=== PATIENT | female | born 1975 | race Caucasian/White ===

== ENCOUNTER 2016-07-09 18:54 | Emergency (ER) | payer OTHER, MEDICARE ==
[~2016-07-09] VITALS: Ht 170.2 cm; Wt 55.8 kg
--- NOTE | 2016-07-09 19:32 | ED GENERAL ADULT ---
History of Present Illness General Chief Complaint: General Adult Stated Complaint: PT IS DIZZY AND RENAL FAILURE Source: patient Exam Limitations: no limitations Vital Signs & Intake/Output Vital Signs & Intake/Output Vital Signs Date Time Temp Pulse Resp B/P Pulse O2 O2 Flow FiO2 Ox Delivery Rate 07/09 2214 98.0 75 18 95/52 98 Room Air 07/09 2109 97.7 69 16 95/55 100 Room Air 07/10 1999 Room Air 07/09 1857 98.8 79 18 109/68 96 Room Air Allergies Coded Allergies: lamotrigine (From LAMICTAL) (Severe, RASH 07/09/16) gluten (Intermediate, BLOATING 07/09/16) wheat (Intermediate, BLOATING 07/09/16) Reconcile Medications Alprazolam 0.25 MG TABLET 2 TAB PO 4 TIMES/DAY PRN ANXIETY (Reported) Chlorzoxazone (Lorzone) 750 MG TABLET 1 TAB PO BID BACK SPASMS/PAIN (Reported ) Cholecalciferol (Vitamin D3) 1,000 UNIT TABLET 1 TAB PO QAM SUPPLEMENT ( Reported) Cyanocobalamin (Vitamin B-12) (Vitamin B-12) 1,000 MCG TAB.SUBL 1 TAB SL QAM SUPPLEMENT (Reported) Cyclobenzaprine HCl (Amrix) 15 MG CAP.ER.24H 1 CAP PO QPM MUSCLE RELAXER ( Reported) Diazepam 10 MG TABLET 1 TAB PO QPM SLEEP (Reported) Dicyclomine HCl 10 MG CAPSULE 1 CAP PO Q6P PRN GI (Reported) Guar Gum (Nutrisource Fiber) 1 EACH PACKET 1 PACKET PO BID GI (Reported) Hydroxychlorquine (Plaquenil) 200 MG TABLET 1 TAB PO BID LUPUS (Reported) Lactobacillus Rhamnosus GG (Culturelle) 10 BILLION CELL CAPSULE 1 CAP PO QAM PROBIOTIC (Reported) Levothyroxine Sodium (Tirosint) 75 MCG CAPSULE 1 CAP PO DAILY THYROID ( Reported) Liothyronine Sodium 5 MCG TABLET 1 TAB PO DAILY THYROID (Reported) Loperamide HCl (Loperamide) 2 MG CAPSULE 1 CAP PO 4 TIMES/DAY PRN DIARRHEA ( Reported) Metronidazole 500 MG TABLET 1 TAB PO BID ANTIBIOTIC (Reported) Montelukast Sodium (Singulair) 10 MG TABLET 1 TAB PO 0700 ALLERGIES (Reported ) Olopatadine HCl (Patanase) 0.6 % SPRAY.PUMP 2 SPRAY NASB BID ALLERGIES ( Reported) Oxycodone HCl 5 MG TABLET 1 TAB PO Q4H PRN PAIN (Reported) Sumatriptan Succinate (Imitrex) 100 MG TABLET 1 TAB PO DAILY PRN MIGRAINES ( Reported) with fluids as early as possible after the onset of a migraine attack;may repeat after 2 hours if headache returns, not to exce Topiramate (Topamax) 50 MG TABLET 1 TAB PO BID MIGRAINES (Reported) Triage Note: PT TO TRIAGE WITH C/O DIZZINESS, BILAT FLANK PAIN 10/10, HEADACHES, MILD SOB, WEAKNESS, DIARRHEAx4 SINCE THIS MORNING. HX OF COLON REDUCTION 3 WEEKS AGO. ALSO PT HAD ?LOW BP AT HOME. BP 109/68 IN TRIAGE, PT AFEBRILE, DENIES N/V, DENIES CHEST PAIN. +ABDOMENAL SORENESS. Triage Nurses Notes Reviewed? yes : No Patient currently breastfeeds: No HPI: 40-year-old female arrived to triage to room 3 for evaluation of lightheadedness , dizziness and bilateral flank pain that started early this morning. 3 weeks ago patient had a total colectomy for motility issues. She reports that she has had severe constipation for years and was found that her large intestine was not moving well. It was decided upon to have surgery to correct this. Since her surgery she has been having decreased appetite, decreased by mouth intake and has had periods of where she felt she was dehydrated. She denies any abdominal pain but does have some nausea no vomiting and has had changes in her stools from diarrhea to green stool to small soft stool. She denies any known fevers. At this time she is complaining of bilateral flank pain moderate to severe. Achy/ pressure sensation. She denies any urinary symptoms. She denies any recent sexual activity because of her recent surgery 3 weeks ago. (JUSTYN ORTEGA APRN) Past History Travel History Traveled to [place] past 21 day No Medical History Any Pertinent Medical History? see below for history Gastrointestinal: constipation (SEVERE) Musculoskeletal: disk herniation Endocrine: hypothyroidism Other Medical Hx: LUPUS, RAYNAUDS Surgical History Surgical History: appendectomy, colon resection, spinal fusion Psychosocial History What is your primary language Mosotho Tobacco Use: Never used ETOH Use: denies use Illicit Drug Use: denies illicit drug use Family History Hx Contributory? No (JUSTYN ORTEGA APRN) Review of Systems Review of Systems Constitutional: Reports: malaise, weakness. EENTM: Denies: no symptoms. Respiratory: Denies: no symptoms. Cardiovascular: Denies: no symptoms. GI: Reports: see HPI, nausea, changes in stool. Genitourinary: Denies: no symptoms. Musculoskeletal: Reports: see HPI, back pain. Skin: Denies: no symptoms. Neurological/Psychological: Denies: no symptoms. Hematologic/Endocrine: Denies: no symptoms. Immunologic/Allergic: Denies: no symptoms. (JUSTYN ORTEGA APRN) Physical Exam Physical Exam General Appearance: well developed/nourished, alert, awake, mild distress Head: atraumatic, normal appearance Eyes: Bilateral: normal appearance, PERRL, EOMI. Neck: normal inspection, supple, full range of motion Respiratory: normal breath sounds, chest non-tender, no respiratory distress, quiet respiration, lungs clear Cardiovascular: regular rate/rhythm Peripheral Pulses: 2+ radial (R), 2+ radial (L) Gastrointestinal: normal bowel sounds, soft, non-tender, incision site to abdomen clean dry intact well healed Back: CVA tenderness (R), CVA tenderness (L) Extremities: normal inspection, normal capillary refill, normal range of motion, no edema Neurologic/Psych: no motor/sensory deficits, awake, alert, oriented x 3, normal gait, normal mood/affect Skin: intact, normal color, warm/dry Core Measures ACS in differential dx? No CVA/TIA Diagnosis: No Severe Sepsis Present: No Septic Shock Present: No (JUSTYN ORTEGA APRN) Progress Differential Diagnoses I considered the following diagnoses in my evaluation of the patient: Electrolyte imbalance, UTI, pyelonephritis dehydration Plan of Care: Orders Procedure Date/time Status Add-on Test (ER Only) 07/09 2099 Active HUMAN BETA HCG SCREEN 07/10 1999 Complete CULTURE,URINE 07/10 1935 Active URINALYSIS 07/10 1935 Complete LIPASE 07/10 1935 Complete COMPREHENSIVE METABOLIC PANEL 07/10 1935 Complete CBC WITHOUT DIFFERENTIAL 07/10 1935 Complete AMYLASE 07/10 1935 Complete Laboratory Tests 07/09/16 2030: Urine Color YEL, Urine Clarity CLEAR, Urine pH 7.0, Ur Specific [place]cox 1.010, Urine Protein NEG, Urine Ketones NEG, Urine Nitrite NEG, Urine Bilirubin NEG, Urine Urobilinogen 0.2, Ur Leukocyte Esterase NEG, Ur Microscopic EXAM NOT REQUIRED, Urine Hemoglobin NEG, Urine Glucose NEG 07/09/161999: Anion Gap 8, Estimated GFR > 60, BUN/Creatinine Ratio 14.3, Glucose 99, Calcium 9.3, Total Bilirubin 0.2, AST 17, ALT 31, Alkaline Phosphatase 48, Total Protein 6.5, Albumin 3.8, Globulin 2.7, Albumin/Globulin Ratio 1.4, Amylase 70, Lipase 177, Total Beta HCG NEGATIVE, CBC w Diff NO MAN DIFF REQ, RBC 3.62 L, MCV 91.7, MCH 31.1 H, RDW 12.6, MPV 8.2, Gran % 63.9, Lymphocytes % 24.9, Monocytes % 7.7 , Eosinophils % 3.0, Basophils % 0.5, Absolute Granulocytes 2.7, Absolute Lymphocytes 1.1 L, Absolute Monocytes 0.3, Absolute Eosinophils 0.1, Absolute Basophils 0, PUBS MCHC 34.0 Microbiology 07/09 2029 URINE ROUT: Urine Culture - RECD 2129: Sign out received. CT scan pending. 07/09/2016 10:16:36 PM: Results of labs and CT scan discussed with patient. A printout of results were provided with the patient so that she may follow-up with her surgeon and her doctors. Patient nontoxic appearing, tolerating oral intake. Patient reports that her baseline blood pressures approximately 95/50. Patient's blood pressures in the emergency department consistent with patient's baseline. Appears stable for discharge with outpatient follow-up. (ANG ARORA) Initial ED EKG: none Hand-Off Endorsed To: ANG ARORA Endorsed Time: 2122 Pending: CT Comments: 8:34 PM patient states no relief with Toradol 30 mg IV. We will give her morphine 2 mg IV along with a liter of fluids that she is hardly getting. Labs are all within normal limits. Awaiting for UA to come back. 8:57 PM explained to patient that UA is normal and that after her liter of fluids with the morphine if the pain is constant she will be able to be discharged home. She is very concerned about what could be causing her back pain. She does have a history of lumbar surgery back in 2008 in his currently in pain management for chronic back pain. On oxycodone every 4 hours. We will order a CAT scan of abdomen and pelvis and if negative she will be able to be discharged home. (SHANNON MIRANDA,JUSTYN) Diagnostic Imaging: Viewed by Me: CT Scan. Discussed w/RAD: CT Scan. Radiology Impression: PATIENT: JESSI BAKER PRESENT AGE: 40 PATIENT ACCOUNT NO: [id number] : 73 LOCATION: [facility] ORDERING PHYSICIAN: JUSTYN ORTEGA APRN SERVICE DATE: 07/09/16 EXAM TYPE: CAT - CT ABD & PELVIS W IV CONTRAST EXAMINATION: CT ABDOMEN AND PELVIS WITH CONTRAST CLINICAL INFORMATION: Back pain. COMPARISON: None. TECHNIQUE: Multidetector volumetric imaging was performed of the abdomen and pelvis before and after the IV administration of 94 mL of Optiray 320 intravenous contrast. Sagittal and coronal reformatted images were obtained on the technologist's workstation. DLP: 252 mGy-cm FINDINGS: LUNG BASES: The visualized lung bases are unremarkable. LIVER, GALLBLADDER, AND BILIARY TREE: The liver is normal in size, shape, and attenuation. There is a tiny hypoattenuating lesion along the hepatic dome measuring 7 mm (series 602, image 46) (. This finding is entirely nonspecific but could reflect a small hepatic cyst or hemangioma. Additionally, there is a geographic region of hypoattenuation within the subcapsular region of the right hepatic lobe (series 2, image 24). This finding is also entirely nonspecific and incompletely characterized on this examination. No biliary ductal dilatation is identified. The gallbladder is unremarkable with no evidence of radiopaque gallstones, gallbladder wall thickening, or obvious pericholecystic inflammatory changes. PANCREAS: Unremarkable. SPLEEN: There is a cyst within the upper pole of the spleen measuring 2.6 x 3.0 cm. ADRENAL GLANDS: Unremarkable. KIDNEYS AND URETERS: The kidneys are normal in size and enhance homogeneously, without focal lesions. There is no appreciable nephrolithiasis or hydroureteronephrosis of either kidney or renal collecting system. No ureteral stones are identified. No CT findings indicative of acute pyelonephritis. BLADDER: Unremarkable. GASTROINTESTINAL TRACT: Evaluation of the gastrointestinal system is notable for postsurgical changes related to prior bowel surgery and anastomosis. The anastomotic site, which is visualized within the lower abdomen appears to be grossly patent. The imaged abdominal and pelvic bowel loops are normal in caliber, without findings indicative of small bowel obstruction or ileus. No organizing intra-abdominal or pelvic fluid collections are identified and there is no free intraperitoneal air. ABDOMINAL WALL: No significant hernia is appreciated. LYMPH NODES: No significant abdominal or pelvic adenopathy. VASCULAR: Prominent bilateral gonadal veins. Prominent bilateral parametrial vessels. These findings can be seen in the setting of underlying pelvic venous congestion. The abdominal vasculature is grossly patent. Abdominal aorta and its branching vessels are normal in caliber, without aneurysmal dilatation. PELVIC VISCERA: No adnexal masses are identified. OSSEOUS STRUCTURES: Mechanical hardware related to anterior fusion of the lumbosacral spine from L5 to S1. An intervertebral disc spacer is also identified at the L5- S1 intervertebral disc space. There is normal alignment at the lumbosacral junction. No acute lumbar vertebral compression deformity is identified. There is no cortical destruction or significant periosteal reaction. No perihardware lucencies are identified. IMPRESSION: 1. No acute findings within the abdomen or pelvis to explain patient symptomatology. Postsurgical changes related to prior bowel surgery. The anastomotic site appears to be grossly patent. The imaged abdominal and pelvic bowel loops are normal in caliber, without findings indicative of small bowel obstruction or ileus. 2. Mechanical hardware at the lumbosacral junction related to anterior lumbar fusion from L5 to S1. No perihardware lucencies are identified. There is no cortical destruction or significant periosteal reaction within this region to suggest underlying infection or inflammation. Lumbar spine alignment appears grossly maintained. 3. The bilateral kidneys appear unremarkable, without CT findings indicative of acute pyelonephritis. 4. Incidental geographic region of hypoattenuation within the subcapsular region of the right hepatic lobe. This finding is entirely nonspecific and incompletely characterized on this examination. Differential diagnostic considerations include but are not limited to focal fatty infiltration of the liver. An underlying mass within this region is also possible but is less favored. A nonemergent ultrasound may be obtained for preliminary characterization of this region. DICTATED BY: ROGERIO PHAM MD DATE/TIME DICTATED:07/09/162145 SALES AND MARKETING ADMINISTRATOR:KAILYN DATE/TIME TRANSCRIBED:07/09/162145 CONFIDENTIAL, DO NOT COPY WITHOUT APPROPRIATE AUTHORIZATION. <Electronically signed in Other Vendor System> SIGNED BY: ROGERIO PHAM MD 07/09/160 (ANG ARORA) Departure Departure Time of Disposition: 2123 Condition: Stable Referrals: ARBIA DO,CALI (PCP/Family) Departure Forms: Customer Survey General Discharge Information (JUSTYN ORTEGA APRN) Departure Time of Disposition: 2212 Disposition: HOME OR SELF CARE Clinical Impression Primary Impression: Flank pain Additional Instructions: Follow up with your surgeon and your doctor this upcoming week for further evaluation. Drink plenty of fluids. Return to the ER if fevers, unable to stay hydrated or worsening of symptoms. (AUGIE SOTOMAYOR,ANG) PA/DOOR FITTER Co-Sign Statement Statement: ED Attending supervision documentation- [] I saw and evaluated the patient. I have also reviewed all the pertinent lab results and diagnostic results. I agree with the findings and the plan of care as documented in the PA's/DOOR FITTER's documentation. x I have reviewed the ED Record and agree with the PA's/DOOR FITTER's documentation. [] Additions or exceptions (if any) to the PAs/DOOR FITTER's note and plan are summarized below: [] (BARB NAGY,MOON) Critical Care Note Critical Care Note Critical Care Time: non-applicable (JUSTYN ORTEGA APRN)
[2016-07-09] MEDS ORDERED: METRONIDAZOLE500 M1 PO (19:43)
[2016-07-09] MEDS ORDERED: NUTRISOURCE FI1 EACH PO (19:44)
[2016-07-09] MEDS ORDERED: OXYCODONE HCL5 M1 PO (19:45)
[2016-07-09] MEDS ORDERED: LOPERAMIDE2 M2 PO (19:45)
[2016-07-09] MEDS ORDERED: TIROSINT75 MC1 PO (19:46)
[2016-07-09] MEDS ORDERED: LIOTHYRONINE SO5 MC1 PO (19:46)
[2016-07-09] MEDS ORDERED: AMRIX15 M1 PO (19:46)
[2016-07-09] MEDS ORDERED: VITAMIN B-121000 MC2 SL (19:47)
[2016-07-09] MEDS ORDERED: DIAZEPAM10 M1 PO (19:48)
[2016-07-09] MEDS ORDERED: VITAMIN D31000 UNI2 PO (19:48)
[2016-07-09] MEDS ORDERED: PLAQUENIL200 M1 PO (19:49)
[2016-07-09] MEDS ORDERED: DICYCLOMINE HCL10 M1 PO (19:49)
[2016-07-09] MEDS ORDERED: CULTURELLE1 EACH PO (19:50)
[2016-07-09] MEDS ORDERED: IMITREX100 M1 PO (19:50)
[2016-07-09] MEDS ORDERED: SINGULAIR10 M1 PO (19:51)
[2016-07-09] MEDS ORDERED: LORZONE750 M1 PO (19:51)
[2016-07-09] MEDS ORDERED: TOPAMAX50 M1 PO (19:52)
[2016-07-09] MEDS ORDERED: PATANASE30.5 GM NASB (19:52)
[2016-07-09] MEDS ORDERED: ALPRAZOLAM0.25 M1 PO (19:53)
[2016-07-09 20:05] LABS: ABSOLUTE BASOPHIL COUNT 0 /CUMM (0.0-0.2); ABSOLUTE EOSINOPHIL COUNT 0.1 /CUMM (0.0-0.7); ABSOLUTE GRANULOCYTE CT 2.7 /CUMM (1.4-6.5); ABSOLUTE LYMPH COUNT 1.1 /CUMM (1.2-3.4); ABSOLUTE MONOCYTE COUNT 0.3 /CUMM (0.10-0.60); BASOPHIL % 0.5 % (0.0-2.0); GRANULOCYTE % 63.9 % (42.2-75.2); HEMATOCRIT 33.2 % (37-47); MEAN CORPUSCULAR HGB 31.1 PG (27.0-31.0); MEAN CORPUSCULAR VOLUME 91.7 FL (81.0-99.0); MEAN PLATELET VOLUME 8.2 FL (7.4-10.4); PLATELET COUNT 197 /CUMM (130-400); RBC DISTRIBUTION WIDTH 12.6 % (11.5-14.5); RED BLOOD CELL CT 3.62 /CUMM (4.20-5.40); WHITE BLOOD CELL COUNT 4.2 /CUMM (4.8-10.8)
--- NOTE | 2016-07-09 22:00 | CT SCAN REPORT ---
EXAMINATION: CT ABDOMEN AND PELVIS WITH CONTRAST CLINICAL INFORMATION: Back pain. COMPARISON: None. TECHNIQUE: Multidetector volumetric imaging was performed of the abdomen and pelvis before and after the IV administration of 94 mL of Optiray 320 intravenous contrast. Sagittal and coronal reformatted images were obtained on the technologist's workstation. DLP: 252 mGy-cm FINDINGS: LUNG BASES: The visualized lung bases are unremarkable. LIVER, GALLBLADDER, AND BILIARY TREE: The liver is normal in size, shape, and attenuation. There is a tiny hypoattenuating lesion along the hepatic dome measuring 7 mm (series 602, image 46) (. This finding is entirely nonspecific but could reflect a small hepatic cyst or hemangioma. Additionally, there is a geographic region of hypoattenuation within the subcapsular region of the right hepatic lobe (series 2, image 24). This finding is also entirely nonspecific and incompletely characterized on this examination. No biliary ductal dilatation is identified. The gallbladder is unremarkable with no evidence of radiopaque gallstones, gallbladder wall thickening, or obvious pericholecystic inflammatory changes. PANCREAS: Unremarkable. SPLEEN: There is a cyst within the upper pole of the spleen measuring 2.6 x 3.0 cm. ADRENAL GLANDS: Unremarkable. KIDNEYS AND URETERS: The kidneys are normal in size and enhance homogeneously, without focal lesions. There is no appreciable nephrolithiasis or hydroureteronephrosis of either kidney or renal collecting system. No ureteral stones are identified. No CT findings indicative of acute pyelonephritis. BLADDER: Unremarkable. GASTROINTESTINAL TRACT: Evaluation of the gastrointestinal system is notable for postsurgical changes related to prior bowel surgery and anastomosis. The anastomotic site, which is visualized within the lower abdomen appears to be grossly patent. The imaged abdominal and pelvic bowel loops are normal in caliber, without findings indicative of small bowel obstruction or ileus. No organizing intra-abdominal or pelvic fluid collections are identified and there is no free intraperitoneal air. ABDOMINAL WALL: No significant hernia is appreciated. LYMPH NODES: No significant abdominal or pelvic adenopathy. VASCULAR: Prominent bilateral gonadal veins. Prominent bilateral parametrial vessels. These findings can be seen in the setting of underlying pelvic venous congestion. The abdominal vasculature is grossly patent. Abdominal aorta and its branching vessels are normal in caliber, without aneurysmal dilatation. PELVIC VISCERA: No adnexal masses are identified. OSSEOUS STRUCTURES: Mechanical hardware related to anterior fusion of the lumbosacral spine from L5 to S1. An intervertebral disc spacer is also identified at the L5-S1 intervertebral disc space. There is normal alignment at the lumbosacral junction. No acute lumbar vertebral compression deformity is identified. There is no cortical destruction or significant periosteal reaction. No perihardware lucencies are identified. IMPRESSION: 1. No acute findings within the abdomen or pelvis to explain patient symptomatology. Postsurgical changes related to prior bowel surgery. The anastomotic site appears to be grossly patent. The imaged abdominal and pelvic bowel loops are normal in caliber, without findings indicative of small bowel obstruction or ileus. 2. Mechanical hardware at the lumbosacral junction related to anterior lumbar fusion from L5 to S1. No perihardware lucencies are identified. There is no cortical destruction or significant periosteal reaction within this region to suggest underlying infection or inflammation. Lumbar spine alignment appears grossly maintained. 3. The bilateral kidneys appear unremarkable, without CT findings indicative of acute pyelonephritis. 4. Incidental geographic region of hypoattenuation within the subcapsular region of the right hepatic lobe. This finding is entirely nonspecific and incompletely characterized on this examination. Differential diagnostic considerations include but are not limited to focal fatty infiltration of the liver. An underlying mass within this region is also possible but is less favored. A nonemergent ultrasound may be obtained for preliminary characterization of this region.
[2016-07-09 22:14] VITALS: BP 95/52
== END 2016-07-09 22:26 ==
LOC: ERH 18:54
PROVIDERS: Nurse Practitioner Family
DX: R10.32 Left lower quadrant pain (principal); R10.31 Right lower quadrant pain
CPT/HCPCS: 74177; 81003; 87086; 96361; 96374; 96375; 96376; J1885